=== PATIENT | male | born 1990 | race Caucasian/White ===

== ENCOUNTER 2021-07-16 15:17 | Emergency (ER) | payer MEDICAID ==
[~2021-07-16] VITALS: Ht 172.7 cm; Wt 68.0 kg
--- NOTE | 2021-07-16 15:43 | NUR ---
THE PATIENT BIBS FOR C/O ON AND OFF ABDOMINAL PAIN FOR 1 MONTH, GETS WORST AFTER EATING +N/V/D. ABDOMEN SOFT AND NON-DISTENDED. DENIES CHILLS OR FEVER. DENIES DYSURIA/HEMATURIA. WILL CONTINUE TO MONITOR THE PATIENT.
[2021-07-16 15:50] LABS: BASOPHILS % (AUTO) 0.4 % (0.0-2.0); EOSINOPHILS % (AUTO) 1.5 % (0.0-6.0); HEMATOCRIT 50 % (39-51); HEMOGLOBIN 16.9 g/dL (13.5-17.5); LYMPHOCYTES # (AUTO) 2.7 K/uL (0.8-4.8); LYMPHOCYTES % (AUTO) 25.7 % (20.0-44.0); MEAN CORPUSCULAR HGB CONC 34 g/dl (31.0-36.0); MEAN CORPUSCULAR VOLUME 93 fL (80-96); MONOCYTES # (AUTO) 0.8 K/uL (0.1-1.30); MONOCYTES % (AUTO) 7.9 % (2.0-12.0); NEUTROPHILS # (AUTO) 6.7 K/uL (1.8-8.9); NEUTROPHILS % (AUTO) 64.5 % (43.0-81.0); PLATELET COUNT (AUTO) 231 K/uL (150-450); RED BLOOD CELL COUNT(AUTO) 5.38 MIL/uL (4.5-6.0); WHITE BLOOD COUNT (AUTO) 10.4 K/uL (4.3-11.0)
[2021-07-16] MEDS ORDERED: IV NS 0.9% 1,000 ML BAG IV ONE (16:00)
--- NOTE | 2021-07-16 16:05 | NUR ---
urine collected and sent to the lab
[2021-07-16 16:09] LABS: CREATININE 0.9 mg/dL (0.6-1.3); POTASSIUM 3.8 mmol/L (3.5-5.1)
[2021-07-16 16:16] LABS: ALBUMIN 3.9 g/dL (3.4-5.0); BILIRUBIN,DIRECT 0.2 mg/dL (0.0-0.2); BILIRUBIN,TOTAL 0.8 mg/dL (0.2-1.0); TOTAL PROTEIN, SERUM 7.2 g/dL (6.4-8.2)
[2021-07-16 16:44] LABS: BILIRUBIN,URINE SMALL (NEGATIVE); COLOR,URINE YELLOW (YELLOW); LEUKOCYTE ESTERASE ,URINE NEGATIVE (NEGATIVE); NITRITE, URINE NEGATIVE (NEGATIVE); PROTEIN,URINE TRACE mg/dl (NEGATIVE); UGLUCOSE NEGATIVE (NEGATIVE); UROBILINOGEN,URINE 0.2 EU/dL (0.2)
[2021-07-16 16:59] LABS: BACTERIA,URINE Few /HPF (None Seen); RBC,URINE 0-2 /HPF (0-2); SQUAMOUS EPITHELIAL CELL,UR Few /HPF (None Seen); WBC,URINE 0-2 /HPF (0-3)
[2021-07-16] MEDS ORDERED: ACET-2605 PO (17:16)
[2021-07-16] MEDS ORDERED: ONDA4TAB5 PO (17:16)
[2021-07-16 17:22] VITALS: BP 133/85
--- NOTE | 2021-07-16 17:22 | NUR ---
IV removed. Catheter intact and site benign. Pressure and 4x4 applied to site. No bleeding noted.Patient discharged to home in stable condition. Written and verbal after care instructions given. Patient verbalizes understanding of instruction.
== END 2021-07-16 17:23 | disposition home or self-care (01) ==
LOC: ER 15:21
DX: R10.13 Epigastric pain (principal); R10.30 Lower abdominal pain, unspecified; M25.562 Pain in left knee; R10.84 Generalized abdominal pain; R11.2 Nausea with vomiting, unspecified
CPT/HCPCS: 36415; 80048; 80076; 81001; 83690; 85025; 96360; 99283; J7030

== ENCOUNTER 2021-07-26 20:53 | Emergency (ER) | payer MEDICAID ==
[~2021-07-26] VITALS: Ht 165.1 cm; Wt 74.8 kg
[~2021-07-26 20:53] MED LIST: ACET-2605 PO; ONDA4TAB5 PO
[2021-07-26 21:21] VITALS: BP 128/85
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
[2021-07-26] MEDS ORDERED: TDAP [DIPH/PERTUSSIS/TET] 0.5 ML VIAL IM ONE ×2 (21:30→21:47)
[2021-07-26] MEDS ORDERED: CEPH500C2 PO (21:44)
--- NOTE | 2021-07-26 21:53 | NUR ---
Patient discharged to home in stable condition. Written and verbal after care instructions given. Patient verbalizes understanding of instruction.
== END 2021-07-26 21:54 | disposition home or self-care (01) ==
LOC: ER 20:56
DX: S61.412A Laceration without foreign body of left hand, initial encounter (principal); F10.10 Alcohol abuse, uncomplicated; F17.200 Nicotine dependence, unspecified, uncomplicated; Y90.9 Presence of alcohol in blood, level not specified; Z60.2 Problems related to living alone; Z79.899 Other long term (current) drug therapy; W26.0XXA Contact with knife, initial encounter; Y93.89 Activity, other specified; Y92.89 Other specified places as the place of occurrence of the external cause; Y99.8 Other external cause status
CPT/HCPCS: 90715

== ENCOUNTER 2021-08-14 02:24 | Emergency (ER) | payer MEDICAID ==
[~2021-08-14] VITALS: Ht 170.2 cm; Wt 68.0 kg
[~2021-08-14 02:24] MED LIST changes: +CEPH500C2 PO
[2021-08-14 03:04] VITALS: BP 127/69
[2021-08-14] MEDS ORDERED: LORATADINE 10 MG TABLET ONE (03:30)
[2021-08-14] MEDS ORDERED: predniSONE 20 MG TABLET ONE (03:30)
[2021-08-14] MEDS ORDERED: predniSONE 50 MG TABLET PO ONE (03:30)
[2021-08-14] MEDS ORDERED: EPIN0.3P3 IJ (03:36)
[2021-08-14] MEDS ORDERED: PRED20TA PO (03:36)
--- NOTE | 2021-08-14 03:45 | NUR ---
Patient discharged to home in stable condition. Written and verbal after care instructions given. Patient verbalizes understanding of instruction. Pt ambulatory with a steady gait
[2021-08-14] MEDS ORDERED: LORATADINE 10 MG TABLET PO SCH (09:00)
== END 2021-08-14 03:45 | disposition home or self-care (01) ==
LOC: ER 02:27
DX: K13.0 Diseases of lips (principal); F17.200 Nicotine dependence, unspecified, uncomplicated; Z60.2 Problems related to living alone; Z79.899 Other long term (current) drug therapy
CPT/HCPCS: 99283; J7512